=== PATIENT | female | born 1975 | race Caucasian/White ===

== ENCOUNTER → 2023-10-07 11:35 | Outpatient (REF) | payer OTHER, SELFPAY | LOC: RAD 11:35 | PROVIDERS: ATTENDING PHYSICIAN Internal Medicine Endocrinology, Diabetes & Metabolism; FAMILY PHYSICIAN Family Medicine | DX: E04.2 Nontoxic multinodular goiter (principal) | CPT/HCPCS: 76536 ==

== ENCOUNTER → 2023-11-11 12:05 | Outpatient (REF) | payer OTHER, SELFPAY | LOC: HWRAD 12:05 | PROVIDERS: ATTENDING PHYSICIAN Family Medicine | DX: J33.8 Other polyp of sinus (principal) | CPT/HCPCS: 70486 ==

== ENCOUNTER 2024-02-19 07:25 | Day surgery (SDC) | payer OTHER, SELFPAY ==
[2024-02-09 07:41] VITALS: BMI 34.3
[2024-02-09 08:45] LABS: Hematocrit 32.4 % (37.0-47.0); Hemoglobin 11.6 g/dL (12.0-16.0); Mean Corp Hgb Conc. 35.8 g/dL (33.0-37.0); Mean Corpuscular Volume 92.3 fL (81.0-99.0); Platelet Count 227 10^3/uL (130-400); Red Blood Cell Count 3.51 10^6/uL (4.20-5.40); Red Cell Dist. Width 12.7 % (11.5-14.5); White Blood Cell Count 8.4 10^3/uL (4.8-10.8)
[2024-02-09 08:55] LABS: APTT 28.8 Sec (23.4-35.0)
[2024-02-09 09:01] LABS: ALT (SGPT) 29 U/L (0-35); AST (SGOT) 31 U/L (14-36); Albumin 4.4 g/dl (3.5-5.0); Alkaline Phosphatase 68 U/L (38-126); Blood Urea Nitrogen 10 mg/dl (7-17); Calcium 9.5 mg/dl (8.4-10.2); Carbon Dioxide 26 mmol/L (22-30); Chloride 102 mmol/L (98-107); Estimated Creatinine Clearance > 125 ml/min; Glucose 187 mg/dl (70-99); Potassium 4.7 mmol/L (3.5-5.1); Sodium 137 mmol/L (135-145); Total Bilirubin 0.3 mg/dl (0.2-1.3); Total Protein 6.5 g/dl (6.3-8.2); eGFR > 60.00
[2024-02-19] VITALS (11 sets, daily range): BP systolic 109–141; BP diastolic 58–88; BMI 34.3
[2024-02-19 08:49] LABS: Glucose - Point of Care 233 mg/dl (70-99)
[2024-02-19] MEDS: NORMOSOL-R 1000 IV (08:50)
[2024-02-19] MEDS: NOVOLOG vial 1 UNITS SC ×2 (10:15→11:43)
[2024-02-19 11:23] LABS: Glucose - Point of Care 220 mg/dl (70-99)
[2024-02-19] MEDS: ProAIR HFA INHALER 2 PUFF INH (12:12)
[2024-02-19] MEDS: ROXICODONE 5 MG PO (13:04)
== END 2024-02-19 14:00 | disposition home or self-care (01) ==
LOC: SDS 07:25
PROVIDERS: ATTENDING PHYSICIAN Otolaryngology Facial Plastic Surgery; FAMILY PHYSICIAN Family Medicine
DX: J32.0 Chronic maxillary sinusitis (principal); J33.1 Polypoid sinus degeneration; J30.1 Allergic rhinitis due to pollen
CPT/HCPCS: 31267; 88304; 88311; 36415; 80053; 82962; 85027; 85610; 85730

== ENCOUNTER → 2024-05-10 14:40 | Outpatient (REF) | payer OTHER, SELFPAY | LOC: RAD 14:40 | PROVIDERS: ATTENDING PHYSICIAN Family Medicine | DX: R05.3 Chronic cough (principal) | CPT/HCPCS: 71046 ==

== ENCOUNTER → 2024-05-25 11:20 | Outpatient (REF) | payer OTHER, SELFPAY | LOC: WDC 11:20 | PROVIDERS: ATTENDING PHYSICIAN Family Medicine | DX: Z12.31 Encounter for screening mammogram for malignant neoplasm of breast (principal) | CPT/HCPCS: 77063; 77067 ==

== ENCOUNTER 2024-06-14 03:17 | Emergency (ER) | payer OTHER, SELFPAY ==
[2024-06-14 03:19] VITALS: BP 184/94
[2024-06-14 03:49] VITALS: BP 147/82
[2024-06-14 03:57] VITALS: BMI 34.3
[2024-06-14 04:00] VITALS: BP 146/78
[2024-06-14 04:33] LABS: % Basophils 0.5 % (0-2); % Eosinophils 0.9 % (0-6); % Immature Granulocytes 0.4 % (0-0.5); % Lymphocytes 38.8 % (20.5-51.1); % Monocytes 6.6 % (1.7-9.3); % Neutrophils 52.8 % (42.2-75.2); Absolute Basophils 0.1 10^3/uL (0-0.2); Absolute Eosinophils 0.1 10^3/uL (0-0.7); Absolute Lymphocytes 3.6 10^3/uL (1.2-3.4); Absolute Monocytes 0.6 10^3/uL (0.1-0.6); Absolute Neutrophils 4.8 10^3/uL (1.4-6.5); Hematocrit 34.9 % (37.0-47.0); Mean Corp Hgb Conc. 37.2 g/dL (33.0-37.0); Mean Corpuscular Hgb 33.7 pg (27.0-31.0); Mean Corpuscular Volume 90.4 fL (81.0-99.0); Mean Platelet Volume 10.5 fL (7.4-10.4); Nucleated Red Blood Cells % 0 %; Platelet Count 266 10^3/uL (130-400); Red Blood Cell Count 3.86 10^6/uL (4.20-5.40); Red Cell Dist. Width 11.9 % (11.5-14.5); White Blood Cell Count 9.2 10^3/uL (4.8-10.8)
[2024-06-14 04:39] LABS: ALT (SGPT) 65 U/L (0-35); AST (SGOT) 59 U/L (14-36); Albumin 5.2 g/dl (3.5-5.0); Alcohol 50 mg/dl; Alkaline Phosphatase 70 U/L (38-126); Blood Urea Nitrogen 8 mg/dl (7-17); Calcium 9.8 mg/dl (8.4-10.2); Carbon Dioxide 21 mmol/L (22-30); Chloride 103 mmol/L (98-107); Estimated Creatinine Clearance > 125 ml/min; Glucose 165 mg/dl (70-99); Potassium 3.8 mmol/L (3.5-5.1); Sodium 144 mmol/L (135-145); Total Bilirubin 0.1 mg/dl (0.2-1.3); Total Protein 7.5 g/dl (6.3-8.2); eGFR > 60.00
[2024-06-14 05:37] LABS: Amphetamines Negative (Negative); Barbiturates Negative (Negative); Benzodiazepines Negative (Negative); Buprenorphine Negative (Negative); Cocaine Negative (Negative); Marijuana Positive (Negative); Methadone Negative (Negative); Methamphetamines Negative (Negative); Opiates Negative (Negative); Phencyclidine Negative (Negative); Tricyclic Antidepressants Negative (Negative)
--- NOTE | 2024-06-14 06:07 | ED.GENMED ---
History of Present Illness
General
Chief Complaint: Facial Problem
Time Seen by Provider: 06/14/24 06:06
History of Present Illness
History of Present Illness:
TIME OF INITIAL ENCOUNTER: 6 AM
HPI:
The patient was at the bed and breakfast overnight (hotel in [place]). She recalls having salad and a little bit of steak for dinner but then later woke up presumably next to her around vomit. She does not recall any other preceding event. She
looked in the mirror and noticed that she had significant amount of right-sided facial bruising. She feels this is her right eyelids are closing awkwardly. She reports no new neck pain. An acute exacerbation of chronic back pain as well.
EXAM:
GENERAL: Well appearing in no distress, she does not appear to be intoxicated
CERVICAL SPINE: No midline c-spine tenderness with excellent AROM
PUPILS: Equally reactive to light directly and consensually
HEAD: No scalp hematoma however the patient does have moderate amount of ecchymosis and tenderness over the right side of the face most notable over the right zygoma, the edema noted to the right lower lid is leading to sensation of abnormal
closure, there is no hyphema
CHEST: No chest wall tenderness, normal heart sounds
LUNGS: Equal lung sounds, no respiratory distress
ABDOMEN: No abdominal tenderness, no peritoneal signs
EXTREMITIES: Normal active range of motion, no tenderness
NEURO: Excellent strength all extremities, appropriate mental status, normal speech/language
NUMBER AND COMPLEXITY OF PROBLEMS ADDRESSED AT THE ENCOUNTER
� Chronic conditions affecting care: Asthma, high blood pressure, hyperlipidemia, GERD, diabetes, hypothyroidism
� Acute Exacerbation and/or Progression of Chronic Illness: This is an acute problem
� Differential Diagnosis includes: Intracranial hemorrhage, alcohol intoxication, minor head injury, facial contusion, facial bone fracture
AMOUNT AND/OR COMPLEXITY OF DATA TO BE REVIEWED AND ANALYZED
� I performed an independent evaluation of and my interpretation is:
EKG:
CT: CT head shows no acute abnormality, CT of the face shows no fracture but does show right-sided facial hematoma
X-rays:
Laboratory Studies: Alcohol level 50, UDS negative, CBC unremarkable, minimal transaminase elevation
Other:
� Review of other/old records: The patient went to the OR this past February with chronic maxillary sinusitis
� Clinical information was obtained by an independent historian: None needed
� Prescriptions/Medications Considered but not given:
� Further testing considered but not performed:
RISK OF COMPLICATIONS AND/OR MORBIDITY OR MORTALITY OF PATIENT MANAGEMENT
� Social determinants of health affecting care: Lives at home
� Discussion with other providers:
� Escalation of care including admission/observation vs risk of discharge considered: Unclear etiology of patient's traumatic event. However currently she has appropriate mental status. She is not appear to be intoxicated.
Alcohol level is 50, marijuana was detected.
ANY OTHER UPDATES:
Past History
Past History
ED Past Medical History: Asthma, HTN, Hypercholesterolemia, NIDDM and Other (PNA)
ED Past Surgical History: Cholecystectomy, Tonsilectomy (Adenoids) and Other (Abdominoplasty)
Social History
Tobacco: Former smoker
Alcohol: None
Drug: None
Personal:
Living: with family
Employment: Employed
Phy Exam
Physical Exam
Physical Exam:
See HPI
Course
Orders/Labs/Results
Orders:
Orders
06/14/24 04:[address] Facial Bones W/o Iv Contras Urgent
Comment:
Reason For Exam: r facial trauma, amnesia of the event
CT Head W/o Iv Contrast Urgent
Comment:
Reason For Exam: r facial trauma, amnesia of the event
06/14/24 04:13
Alcohol Urgent
Complete Blood Count/With Diff Urgent
Comprehensive Metabolic Panel Urgent
Urine Drug Abuse Screen Urgent
Date Specimen was Collected: 06/14/24
Time Specimen was Collected: 04:04
Abnormal Lab Results
06/14/24
04:13
RBC 3.86 L 10^6/uL
(4.20-5.40)
Hct 34.9 L %
(37.0-47.0)
MCH 33.7 H pg
(27.0-31.0)
MCHC 37.2 H g/dL
(33.0-37.0)
MPV 10.5 H fL
(7.4-10.4)
Absolute Lymphs (auto) 3.6 H 10^3/uL
(1.2-3.4)
Carbon Dioxide 21 L mmol/L
(22-30)
Creatinine 0.4 L mg/dL
(0.6-1.0)
Glucose 165 H mg/dl
(70-99)
Total Bilirubin 0.1 L mg/dl
(0.2-1.3)
AST 59 H U/L
(14-36)
ALT 65 H U/L
(0-35)
Albumin 5.2 H g/dl
(3.5-5.0)
U Marijuana (THC) Screen Positive H
(Negative)
06/14/24 04:13
06/14/24 04:13
Vital Signs
Initial and Last Documented VS:
Initial Vital Signs
Temp Pulse Resp BP Pulse Ox
98.4 F 106 22 184/94 98
06/14/24 03:19 06/14/24 03:19 06/14/24 03:19 06/14/24 03:19 06/14/24 03:19
Last Documented Vital Signs
Temp Pulse Resp BP Pulse Ox
98.4 F 107 15 146/78 98
06/14/24 03:19 06/14/24 06:15 06/14/24 06:15 06/14/24 04:00 06/14/24 06:15
*Critical Care Note
Total Time (30-74mins, 75-104mins- exclusive of procedures): Not Applicable
ED Attending Note
-
Portions of this chart may have been created with voice recognition software.� Occasional wrong word or��sound alike� substitutions may have occurred due to the inherent limitations of voice recognition software.
Discharge Plan
Departure
Patient Disposition: Home (Routine Discharge)
Date of Disposition: 06/14/24
Time of Disposition: 06:22
Patient with high blood pressure during this ER visit?: Yes
Discharge Problem:
Contusion of face
Instructions: Contusion
Prescriptions:
No Action
albuterol sulfate [Albuterol Sulfate HFA] 90 MCG/PUFF HFA aerosol inhaler
1 puff inhalation PRN PRN (Reason: asthma)
Zyrtec
10 mg PO HS
cyclobenzaprine 10 MG tablet
10 mg PO BID
fluticasone propion-salmeterol [Advair Diskus] 1 DISK blister with device
1 puff inhalation DAILY
fluticasone propionate 1 SPRAY spray,suspension
2 spray intranasal DAILY
metformin 1,000 MG tablet extended release 24hr
1,000 mg PO BID
celecoxib [Celebrex] 200 mg Capsule
200 mg PO BID
glipizide 10 mg Tablet
10 mg PO DAILY
famotidine 40 mg Tablet
40 mg PO DAILY
diltiazem HCl 240 mg Capsule,Extended Release 24 Hr
240 mg PO BID
omeprazole 40 mg Capsule,Delayed Release(Dr/Ec)
40 mg PO DAILY
candesartan 32 mg Tablet
32 mg PO DAILY
ergocalciferol (vitamin D2) [Vitamin D2] 1,250 mcg (50,000 unit) Capsule
1,250 mcg PO QWEEK
doxycycline monohydrate 40 mg Capsule,Ir - Delay Rel,Biphase
40 mg PO DAILY
Vitamin C
3 gum PO DAILY
Wellbutrin XL
150 mg PO DAILY
Patient Comments:
pt is weaning off this medication.
rosuvastatin [Crestor] 5 mg Tablet
5 mg PO DAILY
varenicline [Chantix] 1 mg Tablet
1 mg PO BID
Referrals:
Mariella Rome, [Family Provider] -
Activity Restrictions/Additional Instructions:
Continue to use ice to the affected area. We can intermittently use Motrin as well. Basic blood work was unremarkable. The urine drug screens was positive for only marijuana. Alcohol level is relatively low at 50. CAT scan of the brain shows no
internal bleeding. CAT scan of the facial bones showed no fractures but does show prominent amount of bruising. Return here if worse or any other concerns.
Interventions
Interventions:
*Risk Screen - Suicide Last Done: 06/14/24 03:19
*General Assessment Last Done: 06/14/24 03:51
*Neglect/Abuse Screening Last Done: 06/14/24 03:19
ED- Fall Risk Assessment Last Done: 06/14/24 03:51
*ED COVID-19 Vaccine History Last Done: 06/14/24 03:51
ED-Skin Assessment Last Done: 06/14/24 03:45
ED- Neurological Assessment Last Done: 06/14/24 03:45
Discharge Date and Time
Print Language: AMERICAN
[2024-06-14 06:31] VITALS: BP 161/87
[2024-06-14] MEDS: TYLENOL 1000 MG PO (06:40)
== END 2024-06-14 06:35 | disposition home or self-care (01) ==
LOC: EMR 03:17
PROVIDERS: Emergency Medicine; EMERGENCY PHYSICIAN Emergency Medicine; FAMILY PHYSICIAN Family Medicine
DX: S00.83XA Contusion of other part of head, initial encounter (principal); X58.XXXA Exposure to other specified factors, initial encounter; J45.909 Unspecified asthma, uncomplicated; I10 Essential (primary) hypertension; E78.00 Pure hypercholesterolemia, unspecified; E11.9 Type 2 diabetes mellitus without complications; Z87.891 Personal history of nicotine dependence; Z90.49 Acquired absence of other specified parts of digestive tract
CPT/HCPCS: 99284; 70450; 70486; 80053; 80306; 82077; 85025

== ENCOUNTER → 2024-09-28 17:24 | Outpatient (REF) | payer OTHER, SELFPAY | LOC: RAD 17:24 | PROVIDERS: ATTENDING PHYSICIAN Family Medicine | DX: J33.8 Other polyp of sinus (principal) | CPT/HCPCS: 70486 ==

== ENCOUNTER 2024-11-22 16:17 | Emergency (ER) | payer OTHER, SELFPAY ==
[2024-11-22 16:22] VITALS: BP 141/88
[2024-11-22 16:48] LABS: % Basophils 0.6 % (0-2); % Immature Granulocytes 0.2 % (0-0.5); % Lymphocytes 32.9 % (20.5-51.1); % Neutrophils 59.3 % (42.2-75.2); Absolute Basophils 0.1 10^3/uL (0-0.2); Absolute Eosinophils 0.1 10^3/uL (0-0.7); Absolute Lymphocytes 2.7 10^3/uL (1.2-3.4); Absolute Monocytes 0.5 10^3/uL (0.1-0.6); Absolute Neutrophils 4.9 10^3/uL (1.4-6.5); Hematocrit 37.4 % (37.0-47.0); Hemoglobin 13.4 g/dL (12.0-16.0); Mean Corp Hgb Conc. 35.8 g/dL (33.0-37.0); Mean Corpuscular Hgb 32.7 pg (27.0-31.0); Mean Corpuscular Volume 91.2 fL (81.0-99.0); Mean Platelet Volume 10.7 fL (7.4-10.4); Nucleated Red Blood Cells % 0 %; Platelet Count 224 10^3/uL (130-400); Red Cell Dist. Width 12.1 % (11.5-14.5); White Blood Cell Count 8.2 10^3/uL (4.8-10.8)
[2024-11-22 17:16] LABS: ALT (SGPT) 43 U/L (0-35); AST (SGOT) 44 U/L (14-36); Albumin 4.5 g/dl (3.5-5.0); Alkaline Phosphatase 73 U/L (38-126); Blood Urea Nitrogen 7 mg/dl (7-17); Calcium 9.9 mg/dl (8.4-10.2); Carbon Dioxide 27 mmol/L (22-30); Chloride 104 mmol/L (98-107); Glucose 160 mg/dl (70-99); Potassium 3.8 mmol/L (3.5-5.1); Sodium 139 mmol/L (135-145); Total Bilirubin 0.5 mg/dl (0.2-1.3); eGFR > 60.00
--- NOTE | 2024-11-22 18:54 | ED.GENMED ---
History of Present Illness
General
Chief Complaint: Swelling
Source: patient
Exam Limitations: none
Time Seen by Provider: 11/22/24 18:31
History of Present Illness
History of Present Illness:
48yoF with a history of hypertension, hyperlipidemia, type 2 diabetes presenting for evaluation of jaw pain. Patient reports pain in her left jaw has been intermittent over the past several months. She will experience a sharp pain in the jaw
region after chewing. The pain has become constant over the past week. She is also noted some swelling in the area. She thought she may have TMJ. She was seen by her PCP last week and was diagnosed with an infected salivary gland. She was
started on a course of Augmentin. Symptoms have not gotten any better and seem to be worse. She called her PCP again today and she was told to go to the ED for evaluation. Patient denies any fevers or chills. She is questioning whether her
symptoms are related to her sinuses as she does have a history of a sinus polyp which has been removed in the past. She is scheduled to see her ENT next week.
Past History
Past History
ED Past Medical History: Asthma, HTN, Hypercholesterolemia, NIDDM and Other (PNA)
ED Past Surgical History: Cholecystectomy, Tonsilectomy (Adenoids) and Other (Abdominoplasty)
Social History
Tobacco: Former smoker
Alcohol: None
Drug: None
Personal:
Living: with family
Employment: Employed
Phy Exam
General Physical Exam
General Presentation: well appearing and no apparent distress
General age: appears stated age
General Skin: warm and dry
General Habitus: normal
General Mental: alert
ENT Exam
ENT Exam: TM's normal, pharynx normal, neck supple, normocephalic and other (There is mild swelling to the angle of the L jaw that is tender to touch. No erythema or warmth noted. No purulence expressed at Stensen's duct. Neck supple. )
Pulmonary Exam
Pulmonary Exam: no respiratory distress
Neurological Exam
Neurological Exam: alert
Hamilton Coma Scale
Eye Opening: Spontaneous
Verbal Response: Oriented
Motor Response: Obeys Commands
GCS Total Score: 15
Skin Exam
Skin Exam: normal color and warm/dry
Psychiatric Exam
Psychiatric Exam: normal mood/affect
Scores
Heart Failure Risk
Heart Failure Risk Score: Not Applicable
Course
Orders/Labs/Results
Orders:
Orders
11/22/24 16:33
Complete Blood Count/With Diff Urgent
Comprehensive Metabolic Panel Urgent
11/22/24 18:54
CT Neck With Iv Contrast Urgent
Comment:
Reason For Exam: L jaw swelling/pain
0.9% Sodium Chloride 1000 ml [Nss] 1,000 ml IV BOLUS
Ketorolac [Toradol] 15 mg IV NOW STA
11/22/24 19:46
Acetaminophen [Tylenol] 1,000 mg PO NOW STA
Abnormal Lab Results
11/22/24
16:33
RBC 4.10 L 10^6/uL
(4.20-5.40)
MCH 32.7 H pg
(27.0-31.0)
MPV 10.7 H fL
(7.4-10.4)
Creatinine 0.4 L mg/dL
(0.6-1.0)
Glucose 160 H mg/dl
(70-99)
AST 44 H U/L
(14-36)
ALT 43 H U/L
(0-35)
11/22/24 16:33
11/22/24 16:33
Vital Signs
Initial and Last Documented VS:
Initial Vital Signs
Temp Pulse Resp BP Pulse Ox
97.6 F 84 16 141/88 100
11/22/24 16:22 11/22/24 16:22 11/22/24 16:22 11/22/24 16:22 11/22/24 16:22
Last Documented Vital Signs
Temp Pulse Resp BP Pulse Ox
97.6 F 85 15 140/86 98
11/22/24 16:22 11/22/24 20:38 11/22/24 20:38 11/22/24 20:38 11/22/24 20:38
MDM/Problems Addressed
Differential Diagnosis Includes:
48yoF here with L jaw pain and swelling. Ongoing x several months but worse over the past week. Symptoms worse with chewing. Seen by PCP last week and told it was an infected salivary gland and started on Augmentin. Here with persistent symptoms.
VSS. There is only mild swelling at the angle of the jaw that is tender to touch. No expressible purulence and patient is nontoxic-appearing which is inconsistent with bacterial sialoadenitis. Differential diagnosis includes but is not limited
to: Viral parotitis, sialolithiasis, TMJ, trigeminal neuralgia, lymphadenopathy
Initial ED plan: Labs obtained in triage and white count normal. Will check CT neck.
*Critical Care Note
Total Time (30-74mins, 75-104mins- exclusive of procedures): Not Applicable
Update Note
Update Note:
Imaging negative for acute findings. Specifically, there are no abnormalities seen in the parotid space. Unclear etiology of symptoms. No indication for hospitalization or further antibiotics at this time. Supportive care discussed including
heat and massage. She may also trial sour candies. She has an appointment scheduled with ENT next week. ED return precautions discussed including fevers. Patient discharged in stable condition.
ED Attending Note
-
Portions of this chart may have been created with voice recognition software.� Occasional wrong word or��sound alike� substitutions may have occurred due to the inherent limitations of voice recognition software.
Discharge Plan
Departure
Patient Disposition: Home (Routine Discharge)
Date of Disposition: 11/22/24
Time of Disposition: 21:22
Patient with high blood pressure during this ER visit?: Yes
Discharge Problem:
Jaw swelling
Instructions: TMJ Exercises
Prescriptions:
No Action
albuterol sulfate [Albuterol Sulfate HFA] 90 MCG/PUFF HFA aerosol inhaler
1 puff inhalation PRN PRN (Reason: asthma)
Zyrtec
10 mg PO HS
cyclobenzaprine 10 MG tablet
10 mg PO BID
fluticasone propion-salmeterol [Advair Diskus] 1 DISK blister with device
1 puff inhalation DAILY
fluticasone propionate 1 SPRAY spray,suspension
2 spray intranasal DAILY
metformin 1,000 MG tablet extended release 24hr
1,000 mg PO BID
celecoxib [Celebrex] 200 mg Capsule
200 mg PO BID
glipizide 10 mg Tablet
10 mg PO DAILY
famotidine 40 mg Tablet
40 mg PO DAILY
diltiazem HCl 240 mg Capsule,Extended Release 24 Hr
240 mg PO BID
omeprazole 40 mg Capsule,Delayed Release(Dr/Ec)
40 mg PO DAILY
candesartan 32 mg Tablet
32 mg PO DAILY
ergocalciferol (vitamin D2) [Vitamin D2] 1,250 mcg (50,000 unit) Capsule
1,250 mcg PO QWEEK
doxycycline monohydrate 40 mg Capsule,Ir - Delay Rel,Biphase
40 mg PO DAILY
Vitamin C
3 gum PO DAILY
Wellbutrin XL
150 mg PO DAILY
Patient Comments:
pt is weaning off this medication.
rosuvastatin [Crestor] 5 mg Tablet
5 mg PO DAILY
varenicline tartrate [Chantix] 1 mg Tablet
1 mg PO BID
Referrals:
Mariella Rome DO [Family Provider] -
Activity Restrictions/Additional Instructions:
Apply heat to affected area. You may try massage and sour candies to see if this helps.
Please follow-up with ENT next week as previously scheduled. Return to the ER with any worsening symptoms including fevers.
Interventions
Interventions:
*Risk Screen - Suicide Last Done: 11/22/24 16:22
*General Assessment Last Done: 11/22/24 16:22
*Neglect/Abuse Screening Last Done: 11/22/24 16:22
*ED- Fall Risk Assessment Last Done: 11/22/24 16:22
*ED COVID-19 Vaccine History Last Done: 11/22/24 16:22
*Nursing Disposition Last Done: 11/22/24 22:34
ED- Pulmonary Assessment Last Done: 11/22/24 19:09
ED- Cardiac Assessment Last Done: 11/22/24 19:09
Discharge Date and Time
Discharge Date/Time: 11/22/24 22:34
Print Language: BENGALI
[2024-11-22 19:09] VITALS: BMI 32.7
[2024-11-22] MEDS: NSS 1000 IV (19:24)
[2024-11-22] MEDS: TYLENOL 1000 MG PO (20:27)
[2024-11-22 20:38] VITALS: BP 140/86
== END 2024-11-22 22:34 | disposition home or self-care (01) ==
LOC: EMR 16:17
PROVIDERS: EMERGENCY PHYSICIAN Student in an Organized Health Care Education/Training Program; FAMILY PHYSICIAN Family Medicine
DX: R22.0 Localized swelling, mass and lump, head (principal); E11.9 Type 2 diabetes mellitus without complications; E78.00 Pure hypercholesterolemia, unspecified; I10 Essential (primary) hypertension; J45.909 Unspecified asthma, uncomplicated; Z90.49 Acquired absence of other specified parts of digestive tract; Z87.891 Personal history of nicotine dependence
CPT/HCPCS: 99284; 96360; 70491; 80053; 85025; Q9967

== ENCOUNTER → 2024-12-27 15:00 | Outpatient (REF) | payer OTHER, SELFPAY | LOC: RCS 15:00 | PROVIDERS: ATTENDING PHYSICIAN Physician Assistant; FAMILY PHYSICIAN Family Medicine | DX: R00.0 Tachycardia, unspecified (principal); R00.2 Palpitations; I49.3 Ventricular premature depolarization; I10 Essential (primary) hypertension; R07.9 Chest pain, unspecified | CPT/HCPCS: 93306 ==

== ENCOUNTER 2025-02-03 06:14 | Day surgery (SDC) | payer OTHER, SELFPAY ==
[2025-02-03] VITALS (10 sets, daily range): BP systolic 98–150; BP diastolic 57–85; BMI 31.1
[2025-02-03 09:32] LABS: Glucose - Point of Care 245 mg/dl (70-99)
[2025-02-03] MEDS: EMEND 40 MG PO (09:46)
[2025-02-03] MEDS: NOVOLOG vial 2 UNITS SC ×2 (09:47→12:40)
[2025-02-03] MEDS: NORMOSOL-R/PLASMALYTE-A 1000 IV (09:53)
[2025-02-03 11:27] LABS: Glucose - Point of Care 185 mg/dl (70-99)
[2025-02-03 12:31] LABS: Glucose - Point of Care 199 mg/dl (70-99)
[2025-02-03] MEDS: TYLENOL 650 MG PO (14:12)
== END 2025-02-03 14:26 | disposition home or self-care (01) ==
LOC: SDS 06:14
PROVIDERS: ATTENDING PHYSICIAN Otolaryngology Facial Plastic Surgery; FAMILY PHYSICIAN Family Medicine
DX: J33.8 Other polyp of sinus (principal); J34.9 Unspecified disorder of nose and nasal sinuses; J30.1 Allergic rhinitis due to pollen
CPT/HCPCS: 31030; 88305; 82962; 88342

== ENCOUNTER → 2025-05-09 14:17 | Outpatient (REF) | payer OTHER, SELFPAY | LOC: RAD 14:17 | PROVIDERS: ATTENDING PHYSICIAN Family Medicine | DX: M25.561 Pain in right knee (principal) | CPT/HCPCS: 73564 ==

== ENCOUNTER → 2025-06-01 17:52 | Outpatient (REF) | payer OTHER, SELFPAY | LOC: PAVMRI 17:52 | PROVIDERS: ATTENDING PHYSICIAN Physician Assistant; FAMILY PHYSICIAN Family Medicine | DX: M25.561 Pain in right knee (principal) | CPT/HCPCS: 73721 ==